=== PATIENT | female | born 1945 | race Hispanic/Latino ===

== ENCOUNTER 2018-08-26 11:56 | Emergency (ER) | payer OTHER ==
[2018-08-26 12:26] VITALS: BP 167/84; PULSE 75; RESP 16; TEMP 97; O2SAT 97
[2018-08-26] MEDS ORDERED: Lidocaine/Epi 1% 1:100000 20 ML IJ ONE (12:46)
[2018-08-26] MEDS ORDERED: Lidocaine 1% Inj (20ml) IJ ONE (12:58)
[2018-08-26] MEDS ORDERED: Lidocaine 1% Inj (20ml) ONE (13:09)
--- NOTE | 2018-08-26 13:24 | ED PDOC ---
HPI: Wound Care - HPI Time Seen by Provider: 08/26/18 12:31 Chief Complaint (Nursing): Abnormal Skin Integrity Chief Complaint (Provider): Abnormal Skin Integrity History Per: Patient Exam Limitations: no limitations Current Symptoms Are (Timing): Still Present Additional Complaint(s): Mechelle Sanchez is a 73 year old female with no past medical history, who presents to the emergency department with a laceration to the left leg that occurred in the [place] while playing with her grandson today. Patient states she tripped on part of the slide and scrapped her leg against the metal slide. She went to urgent care for evaluation where they cleaned the wounds and referred her to come to the ED for further evaluation. Patient states that her tetanus about 3-4 years ago. She denies having any pain currently, anesthesia, or paresthesia in her left lower extremity. Patient denies having any history of HTN, diabetes or HLD. PMD: in [place] Past Medical History Reviewed: Historical Data, Nursing Documentation, Vital Signs Vital Signs: Last Vital Signs Temp 97 F L 08/26/18 12:23 Pulse 75 08/26/18 12:23 Resp 16 08/26/18 12:23 BP 167/84 H 08/26/18 12:23 Pulse Ox 97 08/26/18 12:23 - Medical History PMH: Denies: Diabetes, HTN, Hyperlipidemia - Surgical History Surgical History: No Surg Hx - Family History Family History: States: Unknown Family Hx - Home Medications Home Medications: Ambulatory Orders Medication Instructions Recorded Cephalexin [Keflex] 500 mg PO TID 5 Days capsule 08/26/18 - Allergies Allergies/Adverse Reactions: Allergies Allergy/AdvReac Type Severity Reaction Status Date / Time No Known Allergies Allergy Verified 08/26/18 12:26 Review of Systems ROS Statement: Except As Marked, All Systems Reviewed And Found Negative Musculoskeletal: Positive for: Other (laceration to the left leg) Physical Exam - Reviewed Nursing Documentation Reviewed: Yes Vital Signs Reviewed: Yes - Physical Exam Appears: Positive for: No Acute Distress Cardiovascular/Chest: Positive for: Regular Rate, Rhythm. Negative for: Murmur Respiratory: Positive for: Normal Breath Sounds. Negative for: Respiratory Distress Extremity: Positive for: Capillary Refill (less than 3 seconds ), Other (sensation intact bilaterally of lower extremities; 1 avulsion on the lower aspect of her left anterior leg with approximately 1.5 cm laceration below the avulsion; above the lesion she has another avulsion with approximately 3 cm linear laceration; (-) erythema, edema, drainage). Negative for: Swelling Neurologic/Psych: Positive for: Alert, Oriented (x3) Comments: 2 dressings were removed from both those wounds. - ECG O2 Sat by Pulse Oximetry: 97 (RA) Pulse Ox Interpretation: Normal Medical Decision Making Medical Decision Making: Initial Time: 12:46 Initial Plan: --Motrin 600 mg PO x1 --Lidocaine 1% 10 ml IJ x1 --Laceration repair Scribe Attestation: Documented by Kt Zuleta, acting as a scribe for Em Johnson PA-C. Provider Scribe Attestation: All medical record entries made by the Scribe were at my direction and personally dictated by me. I have reviewed the chart and agree that the record accurately reflects my personal performance of the history, physical exam, medical decision making, and the department course for this patient. I have also personally directed, reviewed, and agree with the discharge instructions and disposition. Disposition - Clinical Impression Clinical Impression: Laceration of leg not thigh - Disposition Disposition Time: 15:00 Condition: STABLE Additional Instructions: Keep dressings on for the next 24hrs and then clean gently with soap and water. Steri-strips will fall off on their own. Do not try to remove them. Hanging skin will probably and fall off. Return to ER or f/u with your primary care doctor if you start to notice redness, swelling, pus drainage or if you develop fevers. Prescriptions: Cephalexin [Keflex] 500 mg PO TID 5 Days capsule Forms: [employer] (Serbian) Print Language: MALTESE
[2018-08-26] MEDS ORDERED: Povidone Iodine Topical 10% Sol ONE (14:21)
== END 2018-08-26 15:08 | disposition home or self-care (01) ==
LOC: H.ER 11:56
DX: S81.812A Laceration without foreign body, left lower leg, initial encounter (principal); W26.8XXA Contact with other sharp object(s), not elsewhere classified, initial encounter; Y92.830 Public park as the place of occurrence of the external cause